=== PATIENT | female | born 1945 | race Caucasian/White ===

== ENCOUNTER → 2016-10-05 | Outpatient (CLI) | payer MEDICARE, BC ==
--- NOTE | 2016-10-05 18:01 | REP ---
REASON: Thyroid nodules. COMPARISON: 09/30/2015 Right lobe of the thyroid gland measures 3.9 x 1.3 x 1.7 cm and the left measures 4.1 x 1.5 x 1.1 cm. Once again, there are innumerable solid and complex nodules scattered throughout both lobes in a fashion completely stable from the prior exam. No new cystic or solid masses seem to have developed. IMPRESSION: Stable exam. Signed by Bg Rangel DO 10/06/2016 10:42 A
== END ==
LOC: M RAD 10:33
PROVIDERS: ATTEND Internal Medicine Endocrinology, Diabetes & Metabolism
DX: E04.1 Nontoxic single thyroid nodule (principal)